=== PATIENT | female | born 1980 | race Caucasian/White ===

== ENCOUNTER 2016-09-05 09:03 | Outpatient (CLI) | payer MEDICAID | END 2016-09-05 09:04 | disposition home or self-care (01) | DX: O46.8X1 Other antepartum hemorrhage, first trimester (principal); Z3A.01 Less than 8 weeks gestation of pregnancy ==

== ENCOUNTER 2016-09-26 14:55 | Outpatient (CLI) | payer MEDICAID | END 2016-09-26 14:56 | disposition home or self-care (01) | DX: Z36 Encounter for antenatal screening of mother (principal) ==

== ENCOUNTER 2016-09-27 14:32 | Outpatient (CLI) | payer MEDICAID | END 2016-09-27 14:33 | disposition home or self-care (01) | DX: Z11.3 Encounter for screening for infections with a predominantly sexual mode of transmission (principal) ==

== ENCOUNTER 2016-11-21 11:06 | Outpatient (CLI) | payer MEDICAID ==
[2016-11-22 13:31] LABS: TEST RESULT REPORT (())
== END 2016-11-21 11:07 | disposition home or self-care (01) ==
LOC: LAB 11:06
PROVIDERS: ATTEND Obstetrics & Gynecology
DX: Z36 Encounter for antenatal screening of mother (principal)
CPT/HCPCS: 81599; 82105; 82677; 84702; 86336

== ENCOUNTER 2016-12-05 07:28 | Outpatient (CLI) | payer MEDICAID ==
--- NOTE | 2016-12-05 15:04 | Ultrasound Report ---
OB ULTRASOUND: 12/05/2016 CLINICAL INDICATION: anatomy. TECHNIQUE: Real-time scanning was performed with medical representative static images obtained. LAST MENSTRUAL PERIOD 07/18/2016 Clinical Age 20 weeks 0 days US Age 20 weeks 2 days EFW Had[place] 338 g EFW% Hadlock -- Heart Rate 142 bpm EDC 04/24/2017 US EDC 04/22/2017 BPD [place] 20 weeks 2 days; means cm 47.2 HC [place] 20 weeks 0 days; means cm 175.2 AC [place] 20 weeks 2 days; means cm 150.3 FL [place] 20 weeks 1 day; means cm 32.5 Presentation moving Placental Location anterior Cervical Length 4.9 cm Amniotic Fluid 16.0 FINDINGS: There is a single viable intrauterine gestation, in variable position. heart rate is 142 BPM. The placenta is anterior, without evidence of previa. Amniotic fluid volume is normal, with an SWETHA of 16.0. By size, the fetus measures 20.3 weeks (20.0 weeks by first trimester ultrasound). The following anatomic structures were visualized and appear normal: The intracranial contents, including the ventricles and posterior fossa; the lips and orbits; the spine; the heart, including 4 chamber view and outflow tracts, and diaphragm; the abdominal contents, including the stomach, the bilateral kidneys, and urinary bladder, as well as a normal 3 vessel cord insertion; 4 limbs. No free fluid or adnexal lesion is appreciated. IMPRESSION: SINGLE VIABLE INTRAUTERINE GESTATION, WITH EXPECTED GROWTH FROM INITIAL SONOGRAM. NORMAL ANATOMIC SURVEY. MTDD
== END 2016-12-05 07:29 | disposition home or self-care (01) ==
LOC: DI 07:28
PROVIDERS: ATTEND Obstetrics & Gynecology
DX: Z36 Encounter for antenatal screening of mother (principal)
CPT/HCPCS: 76811